=== PATIENT | female | born 1935 | race Caucasian/White ===

== ENCOUNTER → 2021-02-06 | Outpatient (CLI) | payer MEDICARE ==
[~2021-02-06] MED LIST: AGGRENOX 25 MG1 EACH PO; ALDACTAZIDE 251 EACH PO; GLUCOPHAGE500 MG PO; LOPRESSOR 25 MG25 MG PO; LORTAB 5-325 M1 EACH PO; OMEPRAZOLE20 MG PO; PRINIVIL5 MG PO; SYNTHROID112 MCG PO
== END ==
LOC: LAB 13:42
DX: N39.0 Urinary tract infection, site not specified (principal)
CPT/HCPCS: 81001

== ENCOUNTER → 2021-02-10 | Outpatient (CLI) | payer MEDICARE ==
[~2021-02-10] VITALS: Ht 152.4 cm; Wt 47.2 kg
== END ==
LOC: OPSV 12:18
DX: N18.30 Chronic kidney disease, stage 3 unspecified (principal); D50.9 Iron deficiency anemia, unspecified
CPT/HCPCS: 96365; J1756

== ENCOUNTER → 2021-02-17 | Outpatient (CLI) | payer MEDICARE ==
[~2021-02-17] VITALS: Ht 152.4 cm; Wt 48.5 kg
== END ==
LOC: OPSV 11:50
DX: N18.30 Chronic kidney disease, stage 3 unspecified (principal); D63.1 Anemia in chronic kidney disease; D50.9 Iron deficiency anemia, unspecified
CPT/HCPCS: 96365; J1756

== ENCOUNTER → 2021-02-27 | Outpatient (CLI) | payer MEDICARE ==
[~2021-02-27] VITALS: Ht 152.4 cm; Wt 48.5 kg
== END ==
LOC: OPSV 12:00
DX: D50.9 Iron deficiency anemia, unspecified (principal); N18.30 Chronic kidney disease, stage 3 unspecified; D63.1 Anemia in chronic kidney disease
CPT/HCPCS: 96365; 96366; J1756